=== PATIENT | female | born 1995 | race Caucasian/White ===

== ENCOUNTER 2019-09-11 22:57 | Emergency (ER) | payer BC, OTHER ==
[2019-09-11] MEDS ORDERED: Sodium Chloride 0.9% 10 ML Syringe FLUSH PRN (23:07)
[2019-09-11] MEDS ORDERED: HYDROmorphone 1 MG/ML Syringe IVPUSH ONE (23:08)
--- NOTE | 2019-09-11 23:16 | EDM.PDOC ---
ED HPI GENERAL MEDICAL PROBLEM - General Stated Complaint: INJURY TO LEG Time Seen by Provider: 09/11/19 23:05 Source of Information: Reports: Patient, Other History Limitations: Reports: No Limitations - History of Present Illness INITIAL COMMENTS - FREE TEXT/NARRATIVE: Pt. presents to ER with complaints of injury to L ankle. Pt. states that she slipped on the ice just prior to arriving at the ER. Pt. states that the injury is isolated to the L ankle. She denies striking her head in the fall. No neck or back pain. She noticed obvious deformity to the ankle and immediately came to ER. Pt. states that her last oral intake was approx. 2000 tonight. She denies any previous injury/pathology to this ankle in the past. Pt. states that she has had a septoplasty as well and tonsillectomy and adenoidectomy. She denies any issues with anesthesia in the past. Onset: Today Location: Reports: Lower Extremity, Left Quality: Reports: Throbbing Severity: Severe Improves with: Reports: Rest Worsens with: Reports: Movement - Related Data Allergies Allergy/AdvReac Type Severity Reaction Status Date / Time Penicillins Allergy Other Verified 09/11/19 23:11 Sulfa (Sulfonamide Allergy Other Verified 09/11/19 23:06 Antibiotics) Home Meds: Home Meds Dextroamphetamine/Amphetamine [Adderall] 30 mg PO DAILY 09/11/19 [History] Norethindrone-Ethinyl Estrad [Necon 0.5-35-28 Tablet] 1 tab PO DAILY 09/11/19 [ History] Sertraline [Zoloft] 100 mg PO DAILY 09/11/19 [History] buPROPion [buPROPion XL] 150 mg PO DAILY 09/11/19 [History] ED ROS GENERAL - Review of Systems Review Of Systems: See Below Constitutional: Reports: No Symptoms HEENT: Reports: No Symptoms Respiratory: Reports: No Symptoms Cardiovascular: Reports: No Symptoms Endocrine: Reports: No Symptoms GI/Abdominal: Reports: No Symptoms : Reports: No Symptoms Musculoskeletal: Reports: Joint Pain, Joint Swelling (L ankle deformity and pain , obvious deformity) Skin: Reports: No Symptoms Neurological: Reports: No Symptoms Psychiatric: Reports: No Symptoms Hematologic/Lymphatic: Reports: No Symptoms Immunologic: Reports: No Symptoms ED EXAM, GENERAL - Physical Exam Exam: See Below Exam Limited By: No Limitations General Appearance: Alert, WD/WN, No Apparent Distress Eye Exam: Bilateral Eye: EOMI, PERRL Throat/Mouth: Normal Inspection, Normal Lips, Normal Teeth, Normal Gums, Normal Oropharynx, Normal Voice, No Airway Compromise Head: Atraumatic, Normocephalic Neck: Normal Inspection, Supple, Non-Tender, Full Range of Motion Respiratory/Chest: No Respiratory Distress, Lungs Clear, Normal Breath Sounds, No Accessory Muscle Use, Chest Non-Tender Cardiovascular: Normal Peripheral Pulses, Regular Rate, Rhythm, No Edema, No Gallop, No JVD, No Murmur, No Rub Extremities: Other (Deformity noted to L ankle. The fracture is closed. CMS intact to the distal portion of the extremity) ED GENERAL MEDICAL PROCEDURES - Splinting Left Lower Extremity Splint Site: L ankle Pre-procedure NV status: Normal Post-procedure NV status: Normal Splint Material: Fiberglass Splint Design: Volar Applied & Form Fitted By: Provider, Nurse Provider Post-Splint Application NV Check: NV Status Normal, Good Position Complications: No Course - Vital Signs Last Recorded V/S: Last Vital Signs Temp 36.5 C 09/11/19 23:00 Pulse 96 09/11/19 23:00 Resp 18 09/11/19 23:00 BP 133/83 09/11/19 23:00 Pulse Ox 96 09/11/19 23:00 - Orders/Labs/Meds Orders: Active Orders 24 hr Category Date Time Status Ankle Min 3V Lt [CR] Stat Exams 09/11/19 23:06 Ordered Sodium Chloride 0.9% [Saline Flush] Med 09/11/19 23:07 Active 10 ml FLUSH ASDIRECTED PRN Peripheral IV Insertion Adult [OM.PC] Routine Oth 09/11/19 23:07 Ordered Medication Orders Sodium Chloride (Saline Flush) 10 ml FLUSH ASDIRECTED PRN PRN Reason: Keep Vein Open Meds: Medications Generic Name Dose Route Start Last Admin Trade Name Freq PRN Reason Stop Dose Admin Sodium Chloride 10 ml 09/11/19 23:07 Saline Flush FLUSH ASDIRECTED PRN Keep Vein Open Discontinued Medications Generic Name Dose Route Start Last Admin Trade Name Freq PRN Reason Stop Dose Admin Hydromorphone HCl 1 mg 09/11/19 23:08 Dilaudid IVPUSH 09/11/19 23:09 ONETIME ONE - Radiology Interpretation Free Text/Narrative:: Trimalleolar fracture/dislocation of L ankle Departure - Departure Time of Disposition: 00:06 Disposition: DC/Tfer to Acute Hospital 02 Clinical Impression: Displaced trimalleolar fracture of left ankle - Discharge Information Referrals: Annalise Avilez PA-C [Primary Care Provider] - Forms: ED Department Discharge, Interfacility Transfer EMTALA Sepsis Event Note - Focused Exam Vital Signs: Vital Signs Temp Pulse Resp BP Pulse Ox 09/11/19 23:00 36.5 C 96 18 133/83 96 Date Exam was Performed: 09/12/19 Time Exam was Performed: 00:01 - Problem List Review Problem List Initiated/Reviewed/Updated: Yes - My Orders Last 24 Hours: My Active Orders 09/11/19 23:06 Ankle Min 3V Lt [CR] Stat 09/11/19 23:07 Sodium Chloride 0.9% [Saline Flush] 10 ml FLUSH ASDIRECTED PRN Peripheral IV Insertion Adult [OM.PC] Routine - Assessment/Plan Last 24 Hours: My Active Orders 09/11/19 23:06 Ankle Min 3V Lt [CR] Stat 09/11/19 23:07 Sodium Chloride 0.9% [Saline Flush] 10 ml FLUSH ASDIRECTED PRN Peripheral IV Insertion Adult [OM.PC] Routine Plan: Pt. will be transported to [facility] via private vehicle. She was kept NPO. I spoke with Dr. Encarnacion, hospitalist at [facility] in [place]. He will be consulting orthopedic surgery for the patient. Pt. was placed in a short leg splint. All questions were answered.
[2019-09-12] MEDS ORDERED: HYDROmorphone 1 MG/ML Syringe IVPUSH ONE (00:15)
--- NOTE | 2019-09-12 08:02 | CR ---
[id number] RAD/RAD Ankle Left 3V Min EXAM: LEFT ANKLE 3 VIEWS INDICATION: Fall with left ankle deformity. COMPARISON: None. DISCUSSION: There is an acute trimalleolar fracture dislocation. There is posterior dislocation of the talus relative to the distal tibia and posterior lateral displacement and angulation of the malleoli. IMPRESSION: 1. Trimalleolar fracture dislocation. Ajay Dean MD 09/12/19 0801 Thank you for allowing us to participate in the care of your patient.
== END 2019-09-12 00:35 | disposition short-term general hospital (02) ==
LOC: VM.ED 22:57
DX: S82.852A Displaced trimalleolar fracture of left lower leg, initial encounter for closed fracture (principal); Z88.0 Allergy status to penicillin; Z88.2 Allergy status to sulfonamides; Z79.899 Other long term (current) drug therapy; W00.0XXA Fall on same level due to ice and snow, initial encounter
CPT/HCPCS: 29515; 73610; 96374; 96376; 99284; J1170